=== PATIENT | male | born 1990 | race Caucasian/White ===

== ENCOUNTER 2018-12-16 00:12 | Emergency (ER) | payer SELFPAY ==
[2018-12-16] MEDS ORDERED: DEXAMETHASONE SOD PHOS INJ 10 MG/1 ML VIAL IM ONE (00:45)
[2018-12-16] MEDS ORDERED: HYDROCODONE/ACETAMINOPHEN 5-325 MG TABLET PO ONE (00:45)
--- NOTE | 2018-12-16 00:51 | ER Document Report ---
HPI - HPI Time Seen by Provider: 12/16/18 00:40 Pain Level: 4 Context: Patient is a 28-year-old male who presents to the emergency department with a chief complaint of right shoulder pain. Patient reports this is been present for months. 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 Patient states he has never had one specific injury. Patient states over the weekend he was helping a friend move when he feels like he overworked his shoulder. Patient reports having pain to the anterior and posterior aspect of the shoulder. Patient reports when he attempts to move his shoulder he hears a cracking and popping noise which has been present for months. Patient states he has been taking 800 mg ibuprofen as well as Aleve with minimal relief. Patient states he has never had imaging of this shoulder or been evaluated for the right shoulder pain. Patient denies numbness or tingling to his right arm. Past Medical History - General Information source: Patient - Social History Smoking Status: Current Every Day Smoker Cigarette use (# per day): Yes - 1 ppd Frequency of alcohol use: Rare Drug Abuse: None Lives with: Alone Family History: None - Past Medical History Cardiac Medical History: Reports: None Pulmonary Medical History: Reports: None EENT Medical History: Reports: None Neurological Medical History: Reports: None Endocrine Medical History: Reports: None Renal/ Medical History: Reports: None Malignancy Medical History: Reports None GI Medical History: Reports: None Musculoskeletal Medical History: Reports None Skin Medical History: Reports None Psychiatric Medical History: Reports: None Traumatic Medical History: Reports: None Infectious Medical History: Reports: None Surgical Hx: Negative Vertical Provider Document - CONSTITUTIONAL Agree With Documented VS: Yes Exam Limitations: No Limitations General Appearance: No Apparent Distress - INFECTION CONTROL TRAVEL OUTSIDE OF THE [place] IN LAST 30 DAYS: No - HEENT HEENT: Atraumatic, Normocephalic - NECK Neck: Normal Inspection - RESPIRATORY Respiratory: Breath Sounds Normal, No Respiratory Distress - CARDIOVASCULAR Cardiovascular: Regular Rate, Regular Rhythm - GI/ABDOMEN Gastrointestinal: Abdomen Soft, Abdomen Non-Tender, Normal Bowel Sounds - MUSCULOSKELETAL/EXTREMETIES Musculoskeletal/Extremeties: Tender, No Edema Notes: There is no edema, ecchymosis, erythema or deformity noted to the right shoulder. Patient has tenderness to palpation to the anterior and posterior aspect of the shoulder. Patient is able to lift his right arm to the level of his shoulder but cannot extend past of this due to pain. Patient has an audible clicking to the right shoulder when attempting to elevate his arm. - NEURO Level of Consciousness: Awake, Appropriate - DERM Integumentary: Warm, Dry, No Rash Course - Re-evaluation Re-evalutation: 12/16/18 00:50 We will obtain an x-ray of the right shoulder as the patient reports he has never had imaging since developing this pain. We will give the patient IM Decadron and 1 oral narcotic medication. Patient states he is not driving. I did inform the patient I would not prescribe narcotics at discharge and ultimately needs to follow-up with orthopedics. Patient will be given a sling after receiving the results of the x-ray. - Vital Signs Vital signs: Temp Pulse Resp BP Pulse Ox 97.7 F 99 16 145/87 H 100 12/16/18 00:17 12/16/18 00:17 12/16/18 00:17 12/16/18 00:17 12/16/18 00:17 - Diagnostic Test Radiology reviewed: Reports reviewed Radiology results interpreted by me: 12/16/18 01:23 Shoulder X-Ray 12/16/18 00:45 IMPRESSION: Negative exam copyright 2011 [employer]- All Rights Reserved Discharge - Discharge Clinical Impression: Shoulder pain Qualifiers: Chronicity: chronic Laterality: right Qualified Code(s): M25.511 - Pain in right shoulder Condition: Stable Disposition: HOME, SELF-CARE Additional Instructions: Today you are seen in the emergency department for shoulder pain. This has been ongoing for a few months but worse over the weekend after helping move. The x- ray was negative for any acute abnormality or deformity. I have prescribed you 6 [place] tablets to take home as well as a sling. Please continue to use ibuprofen as needed. He reports they already have lidocaine patches at home. Please use these. Ultimately you need to follow-up with orthopedics. I have given you multiple referrals on discharge papers. Please return emergency department if symptoms worsen. Shoulder Injury You have injured your shoulder. This usually results from stretching or tearing of the tendons during trauma. Time and protection are required in order to heal properly. Many injuries are quite disabling, and should be taken seriously. Initial treatment includes cold packs and a sling to rest the shoulder. The physician has assessed the seriousness of your injury, and has outlined a treatment plan. Understand that this treatment may change, depending on how you progress. If a re-examination was recommended, it is important that you follow up as instructed. Some shoulder injuries (such as partial tear of the rotator cuff) are only suspected after you've failed to improve. Call us if there's severe pain, numbness, or loss of function. Forms: Smoking Cessation Education Referrals: DEDRA CRESPO DO [ACTIVE STAFF] - Follow up as needed AKILA ALANIS MD [ACTIVE STAFF] - Follow up as needed ROMELIA DÍAZ MD [ACTIVE PROVISIONAL STAFF] - Follow up as needed
--- NOTE | 2018-12-16 01:15 | RADIOLOGY REPORT (SQ) ---
EXAM DESCRIPTION: XR SHOULDER 2 OR MORE VIEWS COMPLETED DATE/TME: 12/16/2018 00:45 CLINICAL HISTORY: 28 years, Male, right shoulder pain COMPARISON: None. NUMBER OF VIEWS: 3 TECHNIQUE: 3 view right shoulder LIMITATIONS: None. FINDINGS: Negative for fracture or dislocation. Soft tissues are unremarkable IMPRESSION: Negative exam copyright 2010 [employer]- All Rights Reserved
[2018-12-16] MEDS ORDERED: HYDROCODONE/ACETAMINOPHEN 5-325 MG (6 TAB/ER DISP) PO ONE (01:28)
[2018-12-16 01:46] VITALS: BP 141/92
== END 2018-12-16 01:46 | disposition home or self-care (01) ==
LOC: ER 00:12
DX: M25.511 Pain in right shoulder (principal); X50.0XXA Overexertion from strenuous movement or load, initial encounter; F17.210 Nicotine dependence, cigarettes, uncomplicated
CPT/HCPCS: 73030; J1100; 99283